=== PATIENT | male | born 1955 | race Caucasian/White ===

== ENCOUNTER → 2021-05-27 | Outpatient (CLI) | payer MEDICARE | LOC: LAB SHORT 13:07 | DX: R21 Rash and other nonspecific skin eruption (principal); S90.111A Contusion of right great toe without damage to nail, initial encounter; D22.62 Melanocytic nevi of left upper limb, including shoulder; D22.5 Melanocytic nevi of trunk; D22.71 Melanocytic nevi of right lower limb, including hip; L57.0 Actinic keratosis; B35.1 Tinea unguium; L80 Vitiligo; L57.8 Other skin changes due to chronic exposure to nonionizing radiation; L82.1 Other seborrheic keratosis; Z71.89 Other specified counseling | CPT/HCPCS: 87070; 87077; 87186; 87205 ==

== ENCOUNTER → 2021-10-06 | Outpatient (CLI) | payer MEDICARE | LOC: LAB SHORT 11:40 | DX: Z48.02 Encounter for removal of sutures (principal); L08.9 Local infection of the skin and subcutaneous tissue, unspecified | CPT/HCPCS: 87070; 87205 ==

== ENCOUNTER 2022-12-11 08:15 | Day surgery (SDC) | payer MEDICARE ==
[~2022-12-11] VITALS: Ht 177.8 cm; Wt 108.6 kg
[~2022-12-11 08:15] MED LIST: OMEP20ER PO
--- NOTE | 2022-12-11 09:41 | NUR ---
12/11/22 0941 Josefina Jimenes PATIENT IN ENDO ROOM #1 [address] MENDEZ. NO SEDATION. NO MONITORS PLACED.
--- NOTE | 2022-12-11 09:51 | NUR ---
PT RECEIVED NO SEDATION MEDICATION. REPORTED NO PAIN OR NAUSEA. WAS ABLE TO GET DRESSED INDEPENDENTLY AND WAS WALKED OUT OF THE UNIT WITH STEADY GAIT.
== END 2022-12-11 23:01 | disposition home or self-care (01) ==
LOC: ORSCMMR 08:15 → ORD 08:15 → ORSCMMR 08:16 → ORD 09:00
PROVIDERS: Internal Medicine Gastroenterology
PROC: 0WJP7ZZ Inspection of Gastrointestinal Tract, Via Natural or Artificial Opening Approach (ICD-10-PCS; principal; 2022-12-11 09:00)
DX: C20 Malignant neoplasm of rectum (principal); Z86.16 Personal history of COVID-19; K21.9 Gastro-esophageal reflux disease without esophagitis; I10 Essential (primary) hypertension; Z79.899 Other long term (current) drug therapy

== ENCOUNTER 2024-03-03 07:35 | Day surgery (SDC) | payer MEDICARE ==
[~2024-03-03] VITALS: Ht 180.3 cm; Wt 95.3 kg
[2024-03-03] MEDS ORDERED: XARELTO20 M1 (08:00)
[2024-03-03] MEDS ORDERED: Lactated Ringer's 1,000 ML IV ONE ×2 (08:04→08:41)
[2024-03-03] MEDS ORDERED: propofoL 50 ML IV ONE (08:05)
--- NOTE | 2024-03-03 08:59 | NUR ---
03/03/24 0859 CHEO FIORE NEW IV TUBING IS NOT RUNNING GREAT.
[2024-03-03 10:11] VITALS: BP 140/86
== END 2024-03-03 10:15 | disposition home or self-care (01) ==
LOC: ORSCSDS 07:35
PROVIDERS: Internal Medicine Gastroenterology
PROC: 0DBM8ZX Excision of Descending Colon, Via Natural or Artificial Opening Endoscopic, Diagnostic (ICD-10-PCS; principal; 2024-03-03 08:45)
PROC: 0DBP8ZX Excision of Rectum, Via Natural or Artificial Opening Endoscopic, Diagnostic (ICD-10-PCS; principal; 2024-03-03 08:45)
DX: Z85.048 Personal history of other malignant neoplasm of rectum, rectosigmoid junction, and anus (principal); D12.4 Benign neoplasm of descending colon; K57.30 Diverticulosis of large intestine without perforation or abscess without bleeding; Z87.891 Personal history of nicotine dependence; Z86.718 Personal history of other venous thrombosis and embolism; Z79.01 Long term (current) use of anticoagulants; Z79.899 Other long term (current) drug therapy; Z80.0 Family history of malignant neoplasm of digestive organs
CPT/HCPCS: 88305; J2704; J7120

== ENCOUNTER → 2025-05-19 | Outpatient (CLI) | payer MEDICARE ==
[~2025-05-19] MED LIST changes: +XARELTO20 M1
[2025-05-19 10:41] LABS: BASOPHILS ABSOLUTE AUTO 0.02 K/mm3 (0.00-0.23); BASOPHILS PERCENT AUTO 0 % (0-2); EOSINOPHILS ABSOLUTE AUTO 0.22 K/mm3 (0.00-0.68); EOSINOPHILS PERCENT AUTO 5 % (0-6); Hematocrit 48.2 % (37.0-53.0); Hemoglobin 15.8 g/dL (13.5-17.5); IMMATURE GRAN ABSOLUTE AUTO 0.02 K/mm3 (0.00-0.10); IMMATURE GRAN PERCENT AUTO 0 % (0-1); LYMPHOCYTES ABSOLUTE AUTO 0.76 K/mm3 (0.84-5.20); LYMPHOCYTES PERCENT AUTO 16 % (21-46); MONOCYTES ABSOLUTE AUTO 0.46 K/mm3 (0.16-1.47); MONOCYTES PERCENT AUTO 10 % (4-13); Mean Corpuscular HGB Conc 32.8 g/dL (31.5-36.5); Mean Corpuscular Volume 90 fL (80-100); NEUTROPHILS ABSOLUTE AUTO 3.38 K/mm3 (1.96-9.15); NEUTROPHILS PERCENT AUTO 70 % (41-73); NRBC ABSOLUTE 0.00 K/mm3 (0.00-0.02); NRBC Auto 0.0 /100 WBC (0.0-0.2); Platelet Count 182 K/mm3 (150-400); RDW Coefficient Variation 14.4 % (11.7-14.2); RDW Standard Deviation 47.1 fL (35.1-46.3)
[2025-05-19 11:06] LABS: Alanine Aminotransfer (ALT/SGP 32.0 U/L (12-78); Albumin, Blood 3.5 g/dL (3.4-5.0); Albumin/Globulin Ratio 0.9 (0.8-1.8); Anion Gap 6.0 mmol/L (3-11); Aspartate Aminotrans (AST/SGOT 27.0 U/L (12-37); Bilirubin, Total 0.5 mg/dL (0.1-1.0); Blood Urea Nitrogen 16.0 mg/dL (8-24); CO2, Blood 28.0 mmol/L (21-32); Calcium, Blood 9.2 mg/dL (8.5-10.1); Chloride, Blood 107.0 mmol/L (98-108); Creatinine, Blood 1.1 mg/dL (0.60-1.20); Globulin, Blood 4.1 g/dL (2.2-4.0); Glucose, Blood 150.0 mg/dL (70-99); Potassium, Blood 4.1 mmol/L (3.5-5.5); Sodium, Blood 137.0 mmol/L (136-145); Total Protein, Blood 7.6 g/dL (6.4-8.2)
== END ==
LOC: LAB 10:36 → LAB SHORT 10:36
PROVIDERS: Internal Medicine Hematology & Oncology
DX: C20 Malignant neoplasm of rectum (principal)
CPT/HCPCS: 80053; 85025